=== PATIENT | female | born 1930 | race Caucasian/White ===

== ENCOUNTER 2018-01-28 13:58 | Inpatient (IN) | payer OTHER ==
[~2018-01-28] VITALS: Ht 154.9 cm; Wt 47.6 kg
[~2018-01-28 13:58] MED LIST: OMEPRAZOLE40 MG PO; ZANTAC150 MG PO
[2018-01-28] MEDS ORDERED: DONEPEZIL HCL5 MG (14:26)
[2018-01-28] MEDS ORDERED: TOPROL XL50 M1 (14:27)
[2018-01-28] MEDS ORDERED: SYNTHROID50 MCG (14:28)
[2018-01-28] MEDS ORDERED: RISPERDAL M-TAB1 MG (14:28)
[2018-01-28] MEDS ORDERED: PREVACID30 MG (14:28)
[2018-01-28] MEDS ORDERED: MELATONIN1 MG (14:29)
[2018-01-28] MEDS ORDERED: SERTRALINE HCL25 MG (14:29)
== END 2018-02-07 14:20 | disposition home health service (06) | DRG 690 ==
LOC: ER 13:58 → MEDI 21:37 → SEC-K 21:37 → MEDI 22:37
PROC: BW4GZZZ Ultrasonography of Pelvic Region (ICD-10-PCS; 2018-01-29)
PROC: 30233N1 Transfusion of Nonautologous Red Blood Cells into Peripheral Vein, Percutaneous Approach (ICD-10-PCS; 2018-02-03)
PROC: 0DH63UZ Insertion of Feeding Device into Stomach, Percutaneous Approach (ICD-10-PCS; principal; 2018-02-05)
DX: N39.0 Urinary tract infection, site not specified (principal); E46 Unspecified protein-calorie malnutrition; N17.8 Other acute kidney failure; R13.19 Other dysphagia; I10 Essential (primary) hypertension; G30.8 Other Alzheimer's disease; F02.80 Dementia in other diseases classified elsewhere, unspecified severity, without behavioral disturbance, psychotic disturbance, mood disturbance, and anxiety; E03.8 Other specified hypothyroidism; Z74.01 Bed confinement status; E86.0 Dehydration; D50.8 Other iron deficiency anemias; B95.2 Enterococcus as the cause of diseases classified elsewhere; Z78.1 Physical restraint status

== ENCOUNTER 2018-07-18 13:33 | Inpatient (IN) | payer OTHER ==
[~2018-07-18] VITALS: Ht 149.9 cm; Wt 38.6 kg
[~2018-07-18 13:33] MED LIST changes: +DONEPEZIL HCL5 MG; +MELATONIN1 MG; +PREVACID30 MG; +RISPERDAL M-TAB1 MG; +SERTRALINE HCL25 MG; +SYNTHROID50 MCG; +TOPROL XL50 M1
--- NOTE | 2018-07-18 14:05 | NUR ---
SE RECIBE PACIENTE ALERTA Y NO ORIENTADA X3 DE UNIDAD DE AMBULANCIA. SE RECIBE PACIENTE CON TUBO NASO GASTRICO EN FOSSA NASALA DERECHA Y CANULA NASAL A 3 LITROS. PACIENTE SE ENCUENTRA ANQUILOSADA. SE UBICA PACIENTE EN APRIL.
[2018-07-18] MEDS ORDERED: TEMAZEPAM7.5 M1 (14:11)
[2018-07-18] MEDS ORDERED: DOXAZOSIN MESYLA1 MG (14:12)
[2018-07-18] MEDS ORDERED: AZOR 5-40 MG T1 EACH (14:12)
--- NOTE | 2018-07-18 14:41 | NUR ---
FAMILIAR DE PACIENE REFIERE TRAER A GAGE MADRE DEBIDO A QUE TIENE LA HEMOGLOBINA EN 6.7. LABORAORIOS SE HICIERON PHUC.
--- NOTE | 2018-07-18 17:19 | NUR ---
PTE EVALUADA POR EL DR COWART QUI[place]. SE ORIENTA A FAMILIAR SOBRE EL MISMO, LO CUAL REFIERE ENTENDER, SE REALIZAN PRUEBAS DE LABORATORIO Y SE ADMINISTRAN MEDICAMENTOS ESTHER ORDEN MEDICA Y SIGUIENDO MEDIDAS ASEPTICAS. SE REALIZA TYPE & CROSS Y SE NOTIFICA A PERSONAL DE SERVICIOS [facility] PARA RECOGER TUBOS PILOTOS A MS STEOHANIE THUMPSON A LAS 4:30 PM. SE COLOCA SCHMITZ ESTHER ORDEN MEDICA Y SIGUIENDO MEDIDAS ASEPTICAS Y ESTERILES, EL MISMO PATENTE CON RETORNO DE 200 ML DE ORINA COLOR AMARILLO JULI.
--- NOTE | 2018-07-18 23:00 | NUR ---
PACIENTE ALERTA Y ACTIVA EM COMPANIA DE FAMILIAR EN APRIL CON BARANDAS ELEVADAS POR GAGE SEGURIDAD. SE OBSERVA IV'F PATENTE VIK DE EDEMA Y ENROJECIMIENTO BAJANDO UN .45NSS @ 40ML/HR. PACIENTE CON BUAN PATRON RESPIRATORIO Y PIEL TIBIA AL TACTO. PENDIENTE DISPONIBILIDAD DE 3 PRBC'S FRACCIONADAS DE SERVICIOS MUTUO. SE OBSERVA SONDA URINARIA PATENTE DRENANDO A GRAVEDAD ORINA COLOR AMARILLO JULI. SE OBSERVA NGT EN FOSA NASAL RT QUE COURTNEY COLOCADO DESDE GAGE HOGAR. PENDIENTE CONSULTA CON DRA. LEMON.
--- NOTE | 2018-07-19 03:10 | NUR ---
SE OBSERVA PERMISO DE TRANSFUSION DE GUERDA FIRMADO POR FAMILIAR. SE COMIENZA 1ERA FRACCION DE LA 1ERA UNIDAD DE PRBC. SE MONITOREA A PACIENTE.
--- NOTE | 2018-07-19 07:30 | NUR ---
SE RECIBE PTE FEMEIA DE 88 YRS ALERTA CONCIETE Y TRANQUILA EN COPANIA DE FAMILAIR. PTE SE OBSERVA BAJANDO PRIMERA TRANSFUCION FRACIONADA SE OBSERVA POR CAMBIOS EN GAGE CONDICION. AL MOMENTO PTE TOLERA TRANSFUCION SIN EFECTOS SEGUNDARIOS.
== END 2018-07-24 17:19 | disposition other institution (70) | DRG 378 ==
LOC: ER 13:33 → SEC-K 07-19 11:50 → MEDJ 07-19 11:50
PROVIDERS: ADMIT Internal Medicine
PROC: 30233N1 Transfusion of Nonautologous Red Blood Cells into Peripheral Vein, Percutaneous Approach (ICD-10-PCS; 2018-07-20)
PROC: 0DH63UZ Insertion of Feeding Device into Stomach, Percutaneous Approach (ICD-10-PCS; principal; 2018-07-23)
DX: K26.0 Acute duodenal ulcer with hemorrhage (principal); F05 Delirium due to known physiological condition; E44.0 Moderate protein-calorie malnutrition; R65.10 Systemic inflammatory response syndrome (SIRS) of non-infectious origin without acute organ dysfunction; D50.8 Other iron deficiency anemias; K92.0 Hematemesis; E03.8 Other specified hypothyroidism; G30.0 Alzheimer's disease with early onset; F02.80 Dementia in other diseases classified elsewhere, unspecified severity, without behavioral disturbance, psychotic disturbance, mood disturbance, and anxiety; R13.19 Other dysphagia; Z74.01 Bed confinement status

== ENCOUNTER 2018-10-07 17:26 | Emergency (ER) | payer OTHER ==
[~2018-10-07] VITALS: Ht 152.4 cm; Wt 59.9 kg
[~2018-10-07 17:26] MED LIST changes: +AZOR 5-40 MG T1 EACH; +DOXAZOSIN MESYLA1 MG; +TEMAZEPAM7.5 M1
== END 2018-10-07 18:25 | disposition home or self-care (01) ==
LOC: ER 17:26
DX: K94.23 Gastrostomy malfunction (principal)